=== PATIENT | male | born 1970 | race Caucasian/White ===

== ENCOUNTER 2021-11-30 01:09 | Emergency (ER) | payer OTHER ==
[~2021-11-30] VITALS: Ht 180.3 cm; Wt 159.1 kg
[2021-11-30 01:19] VITALS: BP_DIAS 151
[2021-11-30 02:24] LABS: BASOPHILS # (AUTO) 0.1 X10'3 (0-0.2); BASOPHILS % (AUTO) 0.9 % (0-1); EOSINOPHILS # (AUTO) 0.3 X10'3 (0-0.9); EOSINOPHILS % (AUTO) 2.7 % (0-6); HEMATOCRIT 39.9 % (42.0-52.0); HEMOGLOBIN 13.5 g/dl (14.0-17.9); LYMPHOCYTES # (AUTO) 2.4 X10'3 (1.1-4.8); LYMPHOCYTES % (AUTO) 23.1 % (21-51); MEAN CORPUSCULAR HEMOGLOBIN 29.2 PG (27.0-31.0); MEAN CORPUSCULAR HGB CONC 33.9 g/dL (33.0-36.5); MEAN CORPUSCULAR VOLUME 86.4 FL (78-98); MEAN PLATELET VOLUME 8.8 FL (7.4-10.4); MONOCYTES # (AUTO) 0.8 X10'3 (0-0.9); MONOCYTES % (AUTO) 7.4 % (2-12); NEUTROPHILS # (AUTO) 6.8 X10'3 (1.8-7.7); NEUTROPHILS % (AUTO) 65.9 % (42-75); PLATELET COUNT 309 X10'3 (140-440); RED BLOOD COUNT 4.62 X10'6 (4.70-6.10); RED CELL DISTRIBUTION WIDTH 14.3 % (11.5-14.5); WHITE BLOOD COUNT 10.3 X10'3 (4.5-11.0)
[2021-11-30 02:43] LABS: ANION GAP 8 (8-16); BLOOD UREA NITROGEN 16 MG/DL (7-18); BUN/CREATININE RATIO 11.4 (5.4-32.0); CALCIUM 9.1 MG/DL (8.5-10.1); CHLORIDE 101 MMOL/L (99-107); GLUCOSE 143 MG/DL (70-104); SODIUM 140 MMOL/L (135-145); TOTAL CARBON DIOXIDE 30.9 MMOL/L (24-32); eGFR 54 ML/MIN
[2021-11-30 02:51] LABS: POTASSIUM 2.7 MMOL/L (3.5-5.1)
[2021-11-30] MEDS ORDERED: potassium Cl 20 mEq SR tablet PO STA (03:11)
[2021-11-30] MEDS ORDERED: labetalol 20mg/4ml (5mg/ml) syringe IV ONE (03:25)
[2021-11-30] MEDS ORDERED: aspirin 325mg tablet PO ONE (03:30)
[2021-11-30] MEDS ORDERED: spironolactone 25 MG tablet PO STA (03:32)
[2021-11-30] MEDS ORDERED: SPIR25TA5 PO (03:34)
[2021-11-30 03:54] VITALS: BP_SYST 198
== END 2021-11-30 04:00 | disposition left against medical advice (07) ==
LOC: ER 01:10
DX: R07.89 Other chest pain (principal); R51.9 Headache, unspecified; I11.0 Hypertensive heart disease with heart failure; I50.9 Heart failure, unspecified; Z56.0 Unemployment, unspecified; Z79.899 Other long term (current) drug therapy
CPT/HCPCS: 36415; 71045; 80048; 84484; 85025; 93005; 96374; 99285; J3490

== ENCOUNTER 2024-02-18 02:50 | Emergency (ER) | payer MEDICAID ==
[~2024-02-18] VITALS: Ht 182.9 cm; Wt 159.1 kg
[~2024-02-18 02:50] MED LIST: SPIR25TA5 PO
[2024-02-18 03:00] VITALS: TEMP 98
[2024-02-18] MEDS: ondansetron/PF 4mg/2ml inj IV ONE (03:10)
[2024-02-18 03:25] LABS: BASOPHILS # (AUTO) 0.1 X10'3 (0-0.2); BASOPHILS % (AUTO) 0.9 % (0-1); EOSINOPHILS # (AUTO) 0.4 X10'3 (0-0.9); EOSINOPHILS % (AUTO) 3.9 % (0-6); HEMATOCRIT 37.9 % (42.0-52.0); HEMOGLOBIN 12.9 g/dl (14.0-17.9); LYMPHOCYTES # (AUTO) 2.1 X10'3 (1.1-4.8); MEAN CORPUSCULAR HEMOGLOBIN 29.8 PG (27.0-31.0); MEAN CORPUSCULAR HGB CONC 33.9 g/dL (33.0-36.5); MEAN CORPUSCULAR VOLUME 87.9 FL (78-98); MEAN PLATELET VOLUME 8.7 FL (7.4-10.4); MONOCYTES # (AUTO) 0.7 X10'3 (0-0.9); MONOCYTES % (AUTO) 6.4 % (2-12); NEUTROPHILS # (AUTO) 7.3 X10'3 (1.8-7.7); NEUTROPHILS % (AUTO) 68.8 % (42-75); PLATELET COUNT 258 X10'3 (140-440); RED BLOOD COUNT 4.31 X10'6 (4.70-6.10); RED CELL DISTRIBUTION WIDTH 14.7 % (11.5-14.5); WHITE BLOOD COUNT 10.6 X10'3 (4.5-11.0)
[2024-02-18 03:43] LABS: ALBUMIN 3.4 G/DL (3.4-5.0); ANION GAP 9 (8-16); BLOOD UREA NITROGEN 20 MG/DL (7-18); BUN/CREATININE RATIO 15.9 (10.0-20.0); CALCIUM 8.8 MG/DL (8.5-10.1); CHLORIDE 103 MMOL/L (99-107); CREATININE 1.26 MG/DL (0.60-1.10); GLUCOSE 261 MG/DL (70-104); LIPASE 35 U/L (16-77); SODIUM 140 MMOL/L (135-145); TOTAL CARBON DIOXIDE 27.9 MMOL/L (24-32); eCRCL 75 ML/MIN; eGFR 60 ML/MIN
[2024-02-18 03:45] LABS: POTASSIUM 3.7 MMOL/L (3.5-5.1)
[2024-02-18] MEDS: normal saline 1000ML IV soln IVB ONE (03:49)
[2024-02-18 04:59] LABS: BILIRUBIN,URINE NEGATIVE (Neg); CLARITY,URINE CLEAR (Clear); COLOR,URINE YELLOW (Yellow); GLUCOSE, URINE 250 mg/dl (Neg); KETONES,URINE NEGATIVE (Neg); LEUKOCYTE ESTERASE ,URINE NEGATIVE (Neg); NITRITES, URINE NEGATIVE (Neg); OCCULT BLOOD,URINE NEGATIVE (Neg); PROTEIN,URINE 100 mg/dl (Neg); UROBILINOGEN,URINE 0.2 E.U/dL (0.2-1.0)
[2024-02-18 05:03] LABS: UA COLLECTION TYPE CLN CATCH MIDSTREAM
[2024-02-18 05:05] LABS: RBC,URINE 0-2 /HPF (0-2); WBC,URINE 0-4 /HPF (0-4)
[2024-02-18 05:06] LABS: BACTERIA,URINE FEW /HPF (Neg); COARSE GRANULAR CAST 0-3 /LPF (NEGATIVE); FINE GRANULAR CAST 0-3 /LPF (NEGATIVE); SQUAMOUS EPITHELIAL CELL,UR FEW /LPF (FEW); TRANSITIONAL EPI CELLS,URINE FEW /HPF
[2024-02-18] MEDS: morphine 4 MG/ML inj SYRINge IV PRN (05:24)
[2024-02-18] MEDS: hydrALAZINE 20mg/ml inj. IV ONE (05:54)
[2024-02-18 06:19] VITALS: BP 198/109; PULSE 99; RESP 14; O2SAT 97
== END 2024-02-18 06:28 ==
LOC: ER 02:51
DX: I50.9 Heart failure, unspecified (principal); I11.0 Hypertensive heart disease with heart failure; Z79.899 Other long term (current) drug therapy
CPT/HCPCS: 36415; 74176; 80048; 81001; 83690; 84484; 85025; 96374; 99285; J0360; J7030

== ENCOUNTER 2024-11-22 04:20 | Emergency (ER) | payer MEDICAID ==
[~2024-11-22] VITALS: Ht 180.3 cm; Wt 158.7 kg
[~2024-11-22 04:20] MED LIST changes: +ASPI-1071 PO; +LISI10TA27 PO; +METF-1157 PO; +METO50TA16 PO; +MINO2.5T19 PO; +NITR0.4T51 SL; -SPIR25TA5 PO
[2024-11-22 04:29] VITALS: TEMP 98.9
[2024-11-22 05:11] LABS: BASOPHILS % (AUTO) 0.5 % (0-1); EOSINOPHILS # (AUTO) 0.6 X10'3 (0-0.9); EOSINOPHILS % (AUTO) 7.2 % (0-6); HEMATOCRIT 36.6 % (42.0-52.0); HEMOGLOBIN 12.1 g/dl (14.0-17.9); LYMPHOCYTES # (AUTO) 1.9 X10'3 (1.1-4.8); LYMPHOCYTES % (AUTO) 24.4 % (21-51); MEAN CORPUSCULAR HEMOGLOBIN 28.9 PG (27.0-31.0); MEAN CORPUSCULAR HGB CONC 33.1 g/dL (33.0-36.5); MEAN CORPUSCULAR VOLUME 87.3 FL (78-98); MONOCYTES # (AUTO) 0.6 X10'3 (0-0.9); MONOCYTES % (AUTO) 7.7 % (2-12); NEUTROPHILS # (AUTO) 4.8 X10'3 (1.8-7.7); NEUTROPHILS % (AUTO) 60.2 % (42-75); PLATELET COUNT 191 X10'3 (140-440); RED BLOOD COUNT 4.19 X10'6 (4.70-6.10); RED CELL DISTRIBUTION WIDTH 16.3 % (11.5-14.5)
[2024-11-22 05:21] LABS: ALANINE AMINOTRANSFERASE 33 U/L (12-78); ALBUMIN 3.3 G/DL (3.4-5.0); ALKALINE PHOSPHATASE 91 IU/L (46-116); ANION GAP 9 (8-16); ASPARTATE AMINO TRANSFERASE 30 U/L (10-37); BILIRUBIN,TOTAL 0.8 MG/DL (0.1-1.0); BLOOD UREA NITROGEN 23 MG/DL (7-18); BUN/CREATININE RATIO 19.5 (10.0-20.0); CALCIUM 8.3 MG/DL (8.5-10.1); CHLORIDE 104 MMOL/L (99-107); CREATININE 1.18 MG/DL (0.60-1.10); GLUCOSE 251 MG/DL (70-104); POTASSIUM 3.5 MMOL/L (3.5-5.1); SODIUM 139 MMOL/L (135-145); TOTAL CARBON DIOXIDE 25.8 MMOL/L (24-32); TOTAL PROTEIN 6.6 G/DL (6.4-8.2); eCRCL 77 ML/MIN; eGFR 65 ML/MIN
[2024-11-22 05:28] LABS: PRO BRAIN NATRIURETIC PEPTIDE 576 PG/ML (0-125)
[2024-11-22] MEDS: furosemide 40mg/4ml inj IV ONE (09:02)
[2024-11-22] MEDS: ondansetron/PF 4mg/2ml inj IV ONE (09:03)
[2024-11-22 09:09] VITALS: BP 155/95; PULSE 93; RESP 24; O2SAT 96
[2024-11-22 10:49] LABS: BILIRUBIN,URINE NEGATIVE (Neg); CLARITY,URINE CLEAR (Clear); COLOR,URINE YELLOW (Yellow); GLUCOSE, URINE 100 mg/dl (Neg); KETONES,URINE NEGATIVE (Neg); LEUKOCYTE ESTERASE ,URINE NEGATIVE (Neg); NITRITES, URINE NEGATIVE (Neg); OCCULT BLOOD,URINE NEGATIVE (Neg); PH,URINE 5.5 (4.8-8.0); PROTEIN,URINE TRACE mg/dl (Neg); UROBILINOGEN,URINE 0.2 E.U/dL (0.2-1.0)
[2024-11-22 10:56] LABS: UA COLLECTION TYPE NON-SPECIFIED
[2024-11-22 10:59] LABS: BACTERIA,URINE NONE SEEN /HPF (Neg); MUCUS STRANDS NONE SEEN /LPF (Neg); RBC,URINE NONE SEEN /HPF (0-2); SQUAMOUS EPITHELIAL CELL,UR FEW /LPF (FEW); WBC,URINE 0-4 /HPF (0-4)
[2024-11-22] MEDS ORDERED: FURO-149 PO (11:00)
[2024-11-22] MEDS ORDERED: POTA10CA95 PO (11:00)
== END 2024-11-22 11:42 | disposition home or self-care (01) ==
LOC: ER 04:20
DX: I11.0 Hypertensive heart disease with heart failure (principal); I50.9 Heart failure, unspecified; E11.9 Type 2 diabetes mellitus without complications; Z79.82 Long term (current) use of aspirin; Z79.84 Long term (current) use of oral hypoglycemic drugs; Z79.899 Other long term (current) drug therapy; Z56.0 Unemployment, unspecified
CPT/HCPCS: 36415; 71045; 80053; 81001; 83880; 84484; 85025; 93005; 96374; 96375; 99285; J1940; J2405

== ENCOUNTER 2025-01-08 13:38 | Outpatient (CLI) | payer MEDICAID ==
[~2025-01-08] VITALS: Ht 177.8 cm; Wt 156.5 kg
[~2025-01-08 13:38] MED LIST changes: +FURO-149 PO; -METF-1157 PO
[2025-01-08 14:27] VITALS: PULSE 90; RESP 16; O2SAT 95
[2025-01-08] MEDS: albuterol 2.5 MG/3 ML nebule NEB ONE (14:36)
[2025-01-08 14:38] VITALS: PULSE 83; RESP 16
== END 2025-01-08 23:59 | disposition home or self-care (01) ==
LOC: RT 13:38
PROVIDERS: ATTEND Family Medicine
DX: I27.20 Pulmonary hypertension, unspecified (principal); R06.02 Shortness of breath; I10 Essential (primary) hypertension
CPT/HCPCS: 94060; 94760

== ENCOUNTER 2025-02-17 14:21 | Inpatient (IN) | payer MEDICAID ==
[~2025-02-17] VITALS: Ht 177.8 cm; Wt 154.2 kg
--- NOTE | 2025-02-17 14:35 | ELECTROCARDIOGRAPH REPORT ---
[facility] Test Date: 2025-02-17 Test Time: 14:26:10 Pat Name: ALICE DAVIDSON Department: EMERGENCY ROOM Room: Gender: M Emergency Room Nurse: : 1970 Requested By: STEPHEN CHRISTIANSON Order Number: [id number] Reading MD: Dr. Xiang Hollins Measurements Intervals [place] Rate: 91 P: 52 KS: 164 QRS: 33 QRSD: 98 T: 57 QT: 377 QTc: 464 Interpretive Statements Sinus rhythm Low voltage, precordial leads RSR' in V1 or V2, right VCD or RVH Electronically Signed On 02-17-2025 18:18:[address] Xiang Hollins Please click the below link to view image of tracing.
[2025-02-17 14:54] LABS: BASOPHILS # (AUTO) 0.1 X10'3 (0-0.2); BASOPHILS % (AUTO) 0.7 % (0-1); EOSINOPHILS # (AUTO) 0.4 X10'3 (0-0.9); EOSINOPHILS % (AUTO) 3.9 % (0-6); HEMOGLOBIN 13.8 g/dl (14.0-17.9); LYMPHOCYTES % (AUTO) 20.4 % (21-51); MEAN CORPUSCULAR HEMOGLOBIN 31.5 PG (27.0-31.0); MEAN CORPUSCULAR HGB CONC 35.3 g/dL (33.0-36.5); MEAN PLATELET VOLUME 9.1 FL (7.4-10.4); MONOCYTES # (AUTO) 0.6 X10'3 (0-0.9); NEUTROPHILS # (AUTO) 6.9 X10'3 (1.8-7.7); PLATELET COUNT 260 X10'3 (140-440); RED BLOOD COUNT 4.38 X10'6 (4.70-6.10); RED CELL DISTRIBUTION WIDTH 16.5 % (11.5-14.5)
[2025-02-17 14:59] LABS: ALANINE AMINOTRANSFERASE 44 U/L (12-78); ALBUMIN 3.7 G/DL (3.4-5.0); ALBUMIN/GLOBULIN RATIO 1.2 (1.1-1.5); ALKALINE PHOSPHATASE 114 IU/L (46-116); ANION GAP 7 (8-16); ASPARTATE AMINO TRANSFERASE 29 U/L (10-37); BILIRUBIN,TOTAL 0.9 MG/DL (0.1-1.0); BLOOD UREA NITROGEN 19 MG/DL (7-18); BUN/CREATININE RATIO 13.8 (10.0-20.0); CALCIUM 8.9 MG/DL (8.5-10.1); CHLORIDE 104 MMOL/L (99-107); CREATININE 1.38 MG/DL (0.60-1.10); GLUCOSE 191 MG/DL (70-104); POTASSIUM 3.7 MMOL/L (3.5-5.1); SODIUM 138 MMOL/L (135-145); TOTAL CARBON DIOXIDE 26.8 MMOL/L (24-32); TOTAL PROTEIN 6.8 G/DL (6.4-8.2); eCRCL 48 ML/MIN; eGFR 54 ML/MIN
[2025-02-17 15:06] LABS: PRO BRAIN NATRIURETIC PEPTIDE 271 PG/ML (0-125)
--- NOTE | 2025-02-17 15:58 | Physician Documentation ---
History of Present Illness ~ Chief Complaint: Hypertension Stated Complaint: HIGH BLOOD PRESSURE Time Seen by MD: 16:02 Primary Medical Doctor: N/A HPI 54-year-old male with history of hypertension presents to the emergency department with sternal chest tightness, blurred vision, generalized malaise, and headache along with high blood pressure readings at home after running out of his normally prescribed lisinopril in the past two weeks. Patient reports that he is on multiple blood pressure medications but they stopped his lisinopril for some reason couple of weeks ago. Since that time his blood pressures have been elevated. He states he has a history of heart failure as well. No other complaints. He reports that he took some nitro as at that he had at home which helped relieve his chest tightness. Medication Reconciliation Allergies: Coded Allergies: No Known Allergies (Unverified , 11/22/24) Scheduled Aspirin (Children's Aspirin), 1 TAB PO DAILY, (Reported) Furosemide (Furosemide), 1 TAB PO BID, (Reported) Lisinopril* (Lisinopril*), 1 TAB PO DAILY, (Reported) Metformin HCl (Metformin HCl ER), 1 TAB PO BID, (Reported) Metoprolol Succinate (Metoprolol Succinate), 1 TAB PO DAILY, (Reported) Omeprazole (Prilosec), 1 CAP PO DAILY, (Reported) Potassium Chloride 8 MEQ* (Slow-K 8 Meq*), 1 CAP PO DAILY, (Reported) Potassium Chloride* (Potassium Chloride*), 1 CAP PO DAILY, (Reported) Spironolactone (Spironolactone), 1 TAB PO DAILY, (Reported) Tirzepatide (Zepbound), 7.5 MG SQ Q7D, (Reported) Tirzepatide (Zepbound), 2.5 MG SQ Q7D, (Reported) Miscellaneous Medications Budesonide/Formoterol Fumarate (Symbicort 160-4.5 Mcg Inhaler), 2 PUFFS PO, (Reported) Nitroglycerin (Nitroglycerin), 1 TAB SL, (Reported) Discontinued Medications Aspirin (Ecotrin*), 1 TAB PO DAILY Discontinued Reason: Other Furosemide (Lasix), 40 MG PO DAILY Discontinued Reason: Other Lisinopril (Lisinopril), 40 MG PO DAILY Discontinued Reason: Other Metoprolol Tartrate (Metoprolol Tartrate), 50 MG PO Q6H Discontinued Reason: Other Minoxidil* (Loniten*), 5 MG PO BID Discontinued Reason: Other Nitroglycerin SL* (Nitrostat SL*), 0.4 MG SL Q5MIN PRN for chest pain Discontinued Reason: Other Past Medical History Past Medical History: Congestive Heart Failure, Hypertension Past Surgical History: no surgical history Lives In: Home Occupation: unemployed Physical Exam Vital Signs: Temperature: 97.3, Source: Temporal, Heart Rate: 92, Respiratory Rate: 18, BP: 203/113, Pulse Oximetry: 97, Weight: 157.350 Physical Exam I have reviewed the triage vitals. CONST: Well developed and well nourished. In no acute distress HENT: Head Atraumatic EYES: Pupils are equal, round and reactive to light. Normal conjunctiva NECK: Normal range of motion. Supple. CARDIO: Normal rate and regular rhythm. No murmurs, rubs, or gallops. S1, S2. PULM/CHEST: No respiratory distress. Lungs clear to auscultation. No wheeze ABD: Soft and nontender. Nondistended. Bowel sounds normal. No guarding. Obese : Exam deferred MSK: No edema. No deformity. NEURO: Alert and oriented to person, place and time. Moving all extremities SKIN: Warm and dry. PSYCH: Normal mood and affect. Good eye contact. Progress Progress Note 1856: Hospitalist paged. Results/Orders Reviewed/noted all lab results: Yes Results/Orders Orders - JENNY GUTIERREZ MD Ct Head (02/17/25 16:25) Chest,Single View (02/17/25 16:25) Page Hospitalist (02/17/25 17:49) Fill Out Med Reconciliation (02/17/25 17:49) Completed Orders - JENNY GUTIERREZ MD Clonidine Tablet (Catapres Tablet) (02/17/25 16:25) Ct Head (02/17/25 16:25) Chest,Single View (02/17/25 16:25) Clonidine Tablet (Catapres Tablet) (02/17/25 17:10) Hydralazine Inj. (Apresoline Inj.) (02/17/25 18:00) Vital Signs 02/17/25 02/17/25 02/17/2530/25 14:31 16:08 17:18 17:51 Temp 97.3 97.3 Pulse 92 90 90 83 Resp 18 16 12 16 B/P (MAP) 203/113 203/108 (139) 206/118 (147) 184/115 (138) Pulse Ox 97 98 98 95 O2 Flow Rate 0 0 02/17/25 02/17/25 02/17/25 18:23 18:49 19:17 Pulse 86 82 90 Resp 16 B/P (MAP) 183/103 (129) Pulse Ox 96 O2 Flow Rate 0 Laboratory Tests Test 02/17/25 14:31 02/17/25 16:27 02/17/25 17:37 White Blood Count 10.0 Red Blood Count 4.38 L Hemoglobin 13.8 L Hematocrit 39.0 L Mean Corpuscular Volume 89.0 Mean Corpuscular Hemoglobin 31.5 H Mean Corpuscular Hemoglobin Concent 35.3 Red Cell Distribution Width 16.5 H Platelet Count 260 Mean Platelet Volume 9.1 Neutrophils (%) (Auto) 69.0 Lymphocytes (%) (Auto) 20.4 L Monocytes (%) (Auto) 6.0 Eosinophils (%) (Auto) 3.9 Basophils (%) (Auto) 0.7 Neutrophils # (Auto) 6.9 Lymphocytes # (Auto) 2.0 Monocytes # (Auto) 0.6 Eosinophils # (Auto) 0.4 Basophils # (Auto) 0.1 CBC Comment Sodium Level 138 Potassium Level 3.7 Chloride Level 104 Carbon Dioxide Level 26.8 Anion Gap 7 L Blood Urea Nitrogen 19 H Creatinine 1.38 H Estimated GFR/1.73 m2 54 BUN/Creatinine Ratio 13.8 Glucose Level 191 H Hemoglobin A1c 6.4 H Calcium Level 8.9 Total Bilirubin 0.9 Aspartate Amino Transf (AST/SGOT) 29 Alanine Aminotransferase (ALT/SGPT) 44 Alkaline Phosphatase 114 Troponin I High Sensitivity 30 27 32 Pro-B-Type Natriuretic Peptide 271 H Total Protein 6.8 Albumin 3.7 Globulin 3.1 Albumin/Globulin Ratio 1.2 Chemistry Comments Troponin I High Sens Percent Delta 10 18 Troponin I Hi Sens Absolute Change -3 5 EKG/XRAY/CT/US/VASC/MRI EKG : Additional Comment EKG interpreted by SYD Gutierrez shows normal sinus rhythm at a rate of 81, normal axis, no AK intervals. Normal ischemia Chest X-Ray : Additional Comments CHEST RADIOGRAPH Indication: SOB Technique: Single frontal view of the chest was obtained Comparison: DI CHEST,SINGLE VIEW on DOS: 11/22/24, DI CHEST,SINGLE VIEW on DOS: 10/21/24, CHEST,SINGLE VIEW on DOS: 11/30/21 FINDINGS: Lines and Tubes: None Lungs: No focal consolidation. Mild pulmonary vascular congestion Pleura: No effusion. No pneumothorax. Cardiomediastinal contours: Moderate cardiomegaly. Bones: No acute osseous abnormality. IMPRESSION: Moderate cardiomegaly with mild pulmonary vascular congestion. : Impression EXAM: CT CT HEAD; DATE: 02/17/2025 04:31 PM HISTORY: dizziness/blurry vision COMPARISON: None TECHNIQUE: Axial images were obtained and reformatted in coronal and sagittal planes. All CT scans at this medical facility are performed using dose modulation techniques as appropriate to a performed exam including the following: Automated exposure control was utilized; adjustment of the MA and/or KV according to patient size; and use of iterative reconstruction technique. CT Dose: CTDI volume is 55 mGy. Dose-length product is 916 mGy*cm FINDINGS: Supratentorial Region: No evidence for large acute territorial ischemia. No intracranial hemorrhage is noted. Confluent white matter hypoattenuating foci are noted bilaterally, which typically reflect chronic microvascular ischemic changes. Posterior Fossa: No acute abnormality. Brainstem: Unremarkable. Sellar/Suprasellar Region: Unremarkable. Ventricles, Cisterns, Sulci: Age-appropriate. Orbits: Unremarkable. Paranasal Sinuses: Unremarkable. Mastoid Air Cells: Unremarkable. Vasculature: Unremarkable. Bones/Soft Tissues: No acute abnormality. Other: None. IMPRESSION: 1. No acute intracranial process. Heart Score: Heart Score Response (Comments) Value History Highly Suspicious 2 EKG Normal 0 Age 45-64 1 Risk Factors >3 or Hx ASHD 2 Troponin Normal limit 0 Total 5 Medical Decision Making Additional Information 54-year-old male presenting with hypertensive emergency. He does have severely elevated blood pressure with systolic well over 180 and diastolic swell over 110. Patient has a slight elevation of his BUN and creatinine indicating possible renal damage. Head CT was unremarkable. Additionally he does have some cardiomegaly and mild pulmonary congestion as well and he has been endorsing some chest tightness. He did have an elevation of his BNP. Patient was medicated with two doses of 0.1 mg clonidine with only minimal improvement of his blood pressure. His EKG did not show any signs of acute ischemia. Troponins were not elevated and remainder of his blood work was unremarkable. Given these findings it is prudent to have the patient admitted for treatment of his hypertensive emergency and further treatment and care. Report called to admitting hospitalist team. Departure Time of Disposition: 18:56 Disposition: ADMITTED INPATIENT Admitted to Inpatient Unit: yes, to hospitalist Admission Level of Care: Med/Surg with Tele Impression: Primary Impression: Hypertensive emergency Additional Impression: CHF (congestive heart failure) Qualified Codes: I50.9 - Heart failure, unspecified Condition: Guarded Referrals: NO PRIMARY CARE PROVIDER (PCP) Signature Scribe Signature: Scribed for Xiang Hollins MD by Mame Knight . 02/17/25 19:25 Attestation: Scribed for Xiang Hollins MD by Jenny Lester MD . 02/18/25 06:35 The note accurately reflects work and decisions made by me.Jenny Lester MD 02/18/25 06:35 EARLINE MCCRAY Feb 17, 2025 15:58 JENNY GUTIERREZ MD Feb 17, 2025 16:36 MAME CHERRY Feb 17, 2025 19:26
[2025-02-17] MEDS: cloNIDine 0.1 mg tablet PO ONE ×2 (16:41→17:17)
--- NOTE | 2025-02-17 17:05 | RADIOLOGY REPORT ---
EXAM: CT CT HEAD; DATE: 02/17/2025 04:31 PM HISTORY: dizziness/blurry vision COMPARISON: None TECHNIQUE: Axial images were obtained and reformatted in coronal and sagittal planes. All CT scans at this medical facility are performed using dose modulation techniques as appropriate to a performed e xam including the following: Automated exposure control was utilized; adjustment of the MA and/or KV according to patient size; and use of iterative reconstruction technique. CT Dose: CTDI volume is 55 mGy. Dose-length product is 916 mGy*cm FINDINGS: Supratentorial Region: No evidence for large acute territorial ischemia. No intracranial hemorrhage is noted. Confluent white matter hypoattenuating foci are noted bilaterally, which typically reflect chronic microvascular ischemic changes. Posterior Fossa: No acute abnormality. Brainstem: Unremarkable. Sellar/Suprasellar Region: Unremarkable. Ventricles, Cisterns, Sulci: Age-appropriate. Orbits: Unremarkable. Paranasal Sinuses: Unremarkable. Mastoid Air Cells: Unremarkable. Vasculature: Unremarkable. Bones/Soft Tissues: No acute abnormality. Other: None. IMPRESSION: 1. No acute intracranial process.
--- NOTE | 2025-02-17 17:12 | RADIOLOGY REPORT ---
CHEST RADIOGRAPH Indication: SOB Technique: Single frontal view of the chest was obtained Comparison: DI CHEST,SINGLE VIEW on DOS: 11/22/24, DI CHEST,SINGLE VIEW on DOS: 10/21/24, CHEST,SINGLE EW on DOS: 11/30/21 FINDINGS: Lines and Tubes: None Lungs: No focal consolidation. Mild pulmonary vascular congestion Pleura: No effusion. No pneumothorax. Cardiomediastinal contours: Moderate cardiomegaly. Bones: No acute osseous abnormality. IMPRESSION: Moderate cardiomegaly with mild pulmonary vascular congestion.
[2025-02-17] MEDS ORDERED: POTA10CA95 PO (18:07)
[2025-02-17] MEDS ORDERED: BUDE10.2 PO (18:07)
[2025-02-17] MEDS ORDERED: OMEP40CA21 PO (18:07)
[2025-02-17] MEDS ORDERED: TIRZ7.5P3 SQ (18:07)
[2025-02-17] MEDS ORDERED: POTA8CAP20 PO (18:07)
[2025-02-17] MEDS ORDERED: METF-517 PO (18:07)
[2025-02-17] MEDS ORDERED: SPIR25TA5 PO (18:07)
[2025-02-17] MEDS: hydrALAZINE 20mg/ml inj. IV ONE (18:23)
[2025-02-17] MEDS: lisinopril 10 MG tablet PO ONE (19:17)
[2025-02-17] MEDS ORDERED: acetaminophen 325mg tablet PO PRN (19:40)
[2025-02-17] MEDS ORDERED: magnesium sulf-water 2g/50mL 50 ML IV PRN (19:40)
[2025-02-17] MEDS ORDERED: ondansetron/PF 4mg/2ml inj IV PRN (19:40)
[2025-02-17] MEDS ORDERED: magnesium hydroxide 30ml (MOM) UD suspension PO PRN (19:40)
[2025-02-17] MEDS ORDERED: mag hydrox/Alum hydrox/simeth 30ml oral suspension PO PRN (19:40)
[2025-02-17] MEDS ORDERED: magnesium sulf-water 4G/100mL 100 ML IV PRN (19:40)
[2025-02-17] MEDS ORDERED: magnesium Cl slow-release 64mg tablet PO PRN (19:40)
[2025-02-17] MEDS ORDERED: potassium Cl 40MEQ/1/2NS 520ml 520 ML IV PRN (19:40)
[2025-02-17] MEDS ORDERED: morphine 2 MG/ML inj. syringe IV PRN ×2 (19:40)
[2025-02-17] MEDS ORDERED: potassium Cl 20 mEq SR tablet PO PRN ×2 (19:40)
[2025-02-17] MEDS: K and/or MAG REPLACEMENT MC SCH (20:00)
[2025-02-17] MEDS: docusate sod 100mg capsule PO SCH (20:00)
[2025-02-17] MEDS ORDERED: FURO40TA4 PO (20:47)
[2025-02-17] MEDS ORDERED: ASPI-1144 PO (20:47)
[2025-02-17] MEDS ORDERED: LISI40TA13 PO (20:47)
[2025-02-17] MEDS ORDERED: METO-384 PO (20:47)
[2025-02-17] MEDS ORDERED: TIRZ2.5P3 SQ (20:47)
[2025-02-17] MEDS ORDERED: NITR0.4T48 SL (20:49)
[2025-02-17] MEDS: heparin, porcine 5000 units/ml vial SQ SCH (20:54)
[2025-02-17] MEDS ORDERED: dextrose 50%-water 50ml dispensing syringe IV PRN ×2 (21:05)
[2025-02-17] MEDS ORDERED: DEXTROSE 15 GM of carb/4 tabs (each vial/BOTTLE has 4 tablets) PO PRN ×2 (21:05)
[2025-02-17] MEDS ORDERED: glucagon, human recombinant 1mg kit SUBCUT PRN (21:05)
[2025-02-17] MEDS: furosemide 40mg/4ml inj IV SCH (21:24)
[2025-02-17 21:44] LABS: HEMOGLOBIN A1C 6.4 % (4.5-6.2)
[2025-02-17 22:00] VITALS: BP 134/64; PULSE 86; RESP 24; TEMP 97.8; O2SAT 97
[2025-02-17 23:00] VITALS: RESP 24; O2SAT 97
[2025-02-18] VITALS (12 sets, daily range): BP systolic 96–150; BP diastolic 46–94; PULSE 60–96; RESP 10–24; TEMP 97.2–97.8; O2SAT 76–99
--- NOTE | 2025-02-18 00:43 | HISTORY AND PHYSICAL-Residence ---
History & Physical Providers to CC Resident Creating Document: KEVIN GARNETT CC: SAVAGE WING MD ~ History of Present Illness Primary Medical Doctor: N/A Reason for Admit\Complaint: Headache History of Present Illness Patient is 54-year-old male with history of hypertension, stable angina, COPD, CHF, type 2 diabetes and ROLLY who came to the ED due to headaches and concerns of high blood pressure. Patient reports that earlier today he presented with increasing headache, blurry vision, with halos in the left eye, as well as left- sided chest pain 3/10 in intensity, nonradiating along with some nausea. He also reports that he has been experiencing worsening orthopnea and PND, as well as increasing fatigue and shortness of breath on exertion. Of note, patient reports not taking his lisinopril for the past 2 weeks. Allergies: Coded Allergies: No Known Allergies (Unverified , 11/22/24) Home Medications Home Medications Active Reported Nitroglycerin 0.4 Mg Tab.subl 1 Tab SL Children's Aspirin (Aspirin) 81 Mg Tab.chew 1 Tab PO DAILY Metoprolol Succinate 50 Mg Tab.sr.24h 1 Tab PO DAILY Furosemide 40 Mg Tablet 1 Tab PO BID Lisinopril* (Lisinopril) 40 Mg Tablet 1 Tab PO DAILY Zepbound (Tirzepatide) 2.5 Mg/0.5 Ml Pen.injctr 2.5 Mg SQ Q7D Potassium Chloride* (Potassium Chloride) 10 Meq Capsule.sa 1 Cap PO DAILY Metformin HCl ER (Metformin HCl) 1,000 Mg Tab.er.24 1 Tab PO BID Prilosec (Omeprazole) 40 Mg Capsule 1 Cap PO DAILY Spironolactone 25 Mg Tablet 1 Tab PO DAILY Slow-K 8 Meq* (Potassium Chloride) 8 Meq Capsule.sa 1 Cap PO DAILY Zepbound (Tirzepatide) 7.5 Mg/0.5 Ml Pen.injctr 7.5 Mg SQ Q7D Symbicort 160-4.5 Mcg Inhaler (Budesonide/Formoterol Fumarate) 160 Mcg-4.5 Mcg/Actuation Hfa.aer.ad 2 Puffs PO Past Medical History Past Medical History Hypertension, stable angina, COPD, CHF, type 2 diabetes and ROLLY Past Surgical History Surgical History Comment Unspecified arm surgery Family History Family History: FH: coronary artery bypass surgery FH: emphysema FH: lung cancer Past Social History Smoking: Secondhand Alcohol Use: Occasionally Drug Use: None Lives with: Alone Lives In: Home Occupation: unemployed ROS ROS All systems were reviewed and found negative except for pertinent positives mentioned in HPI Exam Vitals: Vital Signs Date Time Temp Pulse Resp B/P (MAP) Pulse Ox O2 Delivery O2 Flow Rate FiO2 02/17/25 23:00 24 97 Room Air 02/17/25 22:19 85 02/17/25 22:00 97.8 134/64 (87) 02/17/25 18:49 0 General: General: awake, alert oriented to place, time, and person HEENT: No pallor present, no icterus, moist mucous membranes Neck: No masses and tenderness Resp: Unlabored. Bilateral basal lung crackles Heart: Regular Rate and rhythm, normal S1 and S2 without murmur, rub or gallop Abdomen: Soft and non tender no organomegaly, no guarding and rigidity, bowel sounds present Neuro: No weakness in the upper and lower limb muscles, power of the muscles 5/5 bilateral upper and lower muscles, knee reflex present bilaterally. Cranial nerves intact Extremities: 1+ pedal edema. No cyanosis or clubbing Skin: Warm and Dry. No lesions Diagnostic Data Last Recorded Lab Results: 02/17/25 1431 02/17/25 1431 Advance Care Planning Advanced Care plannin - 30 Minutes Additional Plan Patient is 54-year-old male with history of hypertension, stable angina, COPD, CHF, type 2 diabetes and ROLLY who came to the ED due to headaches and concerns of high blood pressure. Admitted for evaluation and management of hypertensive emergency and CHF exacerbation. Hypertensive emergency Acute on chronic heart failure with preserved ejection fraction History of stable angina Initial blood pressure 203/115, along with headaches, blurry vision and chest pain Patient received p.o. lisinopril, IV hydralazine, and p.o. clonidine in ED Head CT is unremarkable EKG was unremarkable Troponins are normal ProBNP is 271 Echocardiogram from 10/2024 showed LV is moderately dilated with moderate concentric hypertrophy. Overall systolic function appears normal. LVEF is 55%. RV appears mildly dilated with normal contractility. Thickened RV free wall. RVSP is estimated at 59 mmHG. Chest x-ray shows cardiomegaly with pulmonary congestion Will restart home lisinopril Will start IV Lasix 40 mg b.i.d. daily Continue aspirin, metoprolol, spironolactone Continue nitroglycerin p.r.n. chest pain COPD, not in exacerbation Obstructive sleep apnea Type 2 diabetes A1c is 6.4 DuoNebs q.4 PRN CPAP at night Hold metformin Starts Lantus 10 units, lispro 2 units, low-dose supplemental. Adjust as necessary Code Status: Full code DVT prophylaxis: Heparin Nutrition: Heart healthy diet PT: Ordered Prognosis: Guarded Disposition: Admit to PCU with tele monitoring. Continue medical management Kevin Coronado MD Internal Medicine Resident PGY-1 Date of Service: February 18, 2025 Billing Provider: SAVAGE WING MD Common Visit Codes: [id number] INP/OBS CARE (HIGH) Assessment/Plan Assessment Evaluated the patient with the help of residents. Discussed the case with him. Reviewed notes by the resident. Agree with her assessments and plans. I also reviewed the patient's records. And reviewed notes from other providers, laboratory data, radiological investigations, and charts. KEVIN GARNETT February 18, 2025 00:43 SAVAGE WING MD February 18, 2025 05:19
[2025-02-18] MEDS ORDERED: nitroGLYCERIN 0.4mg SUBLingual tab SL PRN (01:05)
[2025-02-18] MEDS ORDERED: ipratropium/albuterol 3ml nebule NEB PRN (01:10)
[2025-02-18 06:39] LABS: BASOPHILS # (AUTO) 0.1 X10'3 (0-0.2); BASOPHILS % (AUTO) 0.8 % (0-1); EOSINOPHILS # (AUTO) 0.4 X10'3 (0-0.9); EOSINOPHILS % (AUTO) 4.6 % (0-6); HEMATOCRIT 38.2 % (42.0-52.0); HEMOGLOBIN 13.3 g/dl (14.0-17.9); LYMPHOCYTES # (AUTO) 2.4 X10'3 (1.1-4.8); LYMPHOCYTES % (AUTO) 25.6 % (21-51); MEAN CORPUSCULAR HEMOGLOBIN 30.6 PG (27.0-31.0); MEAN CORPUSCULAR HGB CONC 34.7 g/dL (33.0-36.5); MEAN CORPUSCULAR VOLUME 88.2 FL (78-98); MONOCYTES # (AUTO) 0.7 X10'3 (0-0.9); MONOCYTES % (AUTO) 6.9 % (2-12); NEUTROPHILS # (AUTO) 5.9 X10'3 (1.8-7.7); NEUTROPHILS % (AUTO) 62.1 % (42-75); PLATELET COUNT 260 X10'3 (140-440); RED BLOOD COUNT 4.33 X10'6 (4.70-6.10); RED CELL DISTRIBUTION WIDTH 16.2 % (11.5-14.5); WHITE BLOOD COUNT 9.5 X10'3 (4.5-11.0)
[2025-02-18 06:54] LABS: ALANINE AMINOTRANSFERASE 35 U/L (12-78); ALBUMIN 3.3 G/DL (3.4-5.0); ALBUMIN/GLOBULIN RATIO 1.1 (1.1-1.5); ALKALINE PHOSPHATASE 73 IU/L (46-116); ANION GAP 9 (8-16); ASPARTATE AMINO TRANSFERASE 24 U/L (10-37); BLOOD UREA NITROGEN 19 MG/DL (7-18); BUN/CREATININE RATIO 13.8 (10.0-20.0); CALCIUM 8.6 MG/DL (8.5-10.1); CHLORIDE 106 MMOL/L (99-107); CREATININE 1.38 MG/DL (0.60-1.10); GLUCOSE 114 MG/DL (70-104); POTASSIUM 3.9 MMOL/L (3.5-5.1); SODIUM 141 MMOL/L (135-145); TOTAL CARBON DIOXIDE 26.3 MMOL/L (24-32); TOTAL PROTEIN 6.3 G/DL (6.4-8.2); eCRCL 48 ML/MIN; eGFR 54 ML/MIN
[2025-02-18] MEDS: INSULIN LISPRO 100 UNIT/ML INSULN.PEN MULTI-DOSE SQ SCH ×2 (07:00→09:22)
[2025-02-18] MEDS: pantoprazole 40mg Tablet.DR PO SCH (07:59)
[2025-02-18] MEDS: aspirin 81mg tab.chew PO SCH (09:15)
[2025-02-18] MEDS: metoprolol succinate 25mg (24-HOUR) SR. Tablet PO SCH (09:24)
[2025-02-18] MEDS: lisinopril 20mg tablet PO SCH (09:24)
[2025-02-18] MEDS: spironolactone 25 MG tablet PO SCH (09:25)
[2025-02-18 15:13] LABS: BILIRUBIN,URINE NEGATIVE (Neg); CLARITY,URINE CLEAR (Clear); COLOR,URINE YELLOW (Yellow); GLUCOSE, URINE NEGATIVE (Neg); KETONES,URINE NEGATIVE (Neg); LEUKOCYTE ESTERASE ,URINE NEGATIVE (Neg); NITRITES, URINE NEGATIVE (Neg); OCCULT BLOOD,URINE NEGATIVE (Neg); PH,URINE 5.5 (4.8-8.0); PROTEIN,URINE NEGATIVE (Neg); UROBILINOGEN,URINE 0.2 E.U/dL (0.2-1.0)
[2025-02-18 15:22] LABS: UA COLLECTION TYPE CLN CATCH MIDSTREAM
[2025-02-18 15:27] LABS: URINE AMPHETAMINE SCREEN NEGATIVE (Neg); URINE BARBITUATE SCREEN NEGATIVE (Neg); URINE BENZODIAZEPINES SCREEN NEGATIVE (Neg); URINE CANNABINOID SCREEN NEGATIVE (Neg); URINE COCAINE SCREEN NEGATIVE (Neg); URINE METHADONE SCREEN NEGATIVE (Neg); URINE OPIATE SCREEN NEGATIVE (Neg); URINE PHENCYCLIDINE SCREEN NEGATIVE (Neg)
--- NOTE | 2025-02-18 20:07 | PROGRESS NOTE- Residence ---
Progress Note - Resident Providers to CC Resident Creating Document: DAKOTA VANESSA RES ~ Antibiotic Timeout Antibiotic Ordered?: No Subjective Patient was seen and examined at the bedside today. His headache improved. Denies any complaints of chest pain or palpitations. Objective Vital Signs Date Time Temp Pulse Resp B/P (MAP) Pulse Ox O2 Delivery O2 Flow Rate FiO2 02/18/25 19:40 75 18 95 Room Air* 0 21 02/18/25 15:00 97.4 138/78 (98) Result Diagram: 02/18/25 0602/18/25 06 General: awake, alert oriented to place, time, and person HEENT: No pallor present, no icterus, moist mucous membranes Neck: No masses and tenderness Resp: Unlabored. Bilateral basal lung crackles Heart: Regular Rate and rhythm, normal S1 and S2 without murmur, rub or gallop Abdomen: Soft and non tender no organomegaly, no guarding and rigidity, bowel sounds present Neuro: No weakness in the upper and lower limb muscles, power of the muscles 5/5 bilateral upper and lower muscles, knee reflex present bilaterally. Cranial nerves intact Extremities: 1+ pedal edema. No cyanosis or clubbing Skin: Warm and Dry. No lesions Plan Plan Patient is 54-year-old male with history of hypertension, stable angina, COPD, CHF, type 2 diabetes and ROLLY who came to the ED due to headaches and concerns of high blood pressure. Admitted for evaluation and management of hypertensive emergency and CHF exacerbation. Hypertensive emergency Initial blood pressure 203/115, along with headaches, blurry vision and chest pain Blood pressure improved to normal range. Patient received p.o. lisinopril, IV hydralazine, and p.o. clonidine in ED Head CT is unremarkable EKG was unremarkable Troponins are normal Continued home medication metoprolol 50mg, lisinopril 40mg, lasix 40mg iv BID History of stable angina Troponins normal Continued home medication aspirin Continue nitroglycerin p.r.n. chest pain Acute on chronic heart failure with preserved ejection fraction ProBNP is 271 Echocardiogram from 10/2024 showed LV is moderately dilated with moderate concentric hypertrophy. Overall systolic function appears normal. LVEF is 55%. RV appears mildly dilated with normal contractility. Thickened RV free wall. RVSP is estimated at 59 mmHG. Chest x-ray shows cardiomegaly with pulmonary congestion Started IV Lasix 40 mg b.i.d. daily Continued spironolactone COPD, not in exacerbation Obstructive sleep apnea DuoNebs q.4 PRN CPAP at night Type 2 diabetes A1c is 6.4 Hold metformin Starts Lantus 10 units, lispro 2 units, low-dose supplemental. Code Status: Full code DVT prophylaxis: Heparin Nutrition: Heart healthy diet PT: Ordered Prognosis: Guarded Dakota Vanessa M.D PGY1 Addendum will dc home on jardiance for his t2dm Date of Service: February 18, 2025 Billing Provider: TAWANNA LARA MD Common Visit Codes: [id number] INP/OBS CARE(HIGH) DAKOTA VANESSA, RES February 18, 2025 20:07 TAWANNA LARA MD February 18, 2025 20:36
[2025-02-18] MEDS: insulin glargine (Lantus) pen - multi-dose SQ SCH (22:05)
[2025-02-19 01:15] VITALS: RESP 18; O2SAT 97
[2025-02-19 02:00] VITALS: BP 130/89; PULSE 79; RESP 20; TEMP 97.6; O2SAT 98
[2025-02-19 06:00] VITALS: BP 131/62; PULSE 67; RESP 16; TEMP 97.4; O2SAT 93
[2025-02-19 07:26] LABS: BASOPHILS # (AUTO) 0.1 X10'3 (0-0.2); BASOPHILS % (AUTO) 0.8 % (0-1); EOSINOPHILS # (AUTO) 0.5 X10'3 (0-0.9); EOSINOPHILS % (AUTO) 4.9 % (0-6); HEMATOCRIT 39.6 % (42.0-52.0); LYMPHOCYTES # (AUTO) 2.6 X10'3 (1.1-4.8); LYMPHOCYTES % (AUTO) 27.2 % (21-51); MEAN CORPUSCULAR HEMOGLOBIN 31.3 PG (27.0-31.0); MEAN CORPUSCULAR HGB CONC 35.4 g/dL (33.0-36.5); MEAN CORPUSCULAR VOLUME 88.6 FL (78-98); MEAN PLATELET VOLUME 9.2 FL (7.4-10.4); MONOCYTES # (AUTO) 0.7 X10'3 (0-0.9); MONOCYTES % (AUTO) 6.8 % (2-12); NEUTROPHILS # (AUTO) 5.9 X10'3 (1.8-7.7); NEUTROPHILS % (AUTO) 60.3 % (42-75); PLATELET COUNT 227 X10'3 (140-440); RED BLOOD COUNT 4.47 X10'6 (4.70-6.10); RED CELL DISTRIBUTION WIDTH 16.2 % (11.5-14.5); WHITE BLOOD COUNT 9.7 X10'3 (4.5-11.0)
[2025-02-19 08:00] VITALS: RESP 16; O2SAT 98
[2025-02-19 08:28] LABS: ALANINE AMINOTRANSFERASE 37 U/L (12-78); ALBUMIN 3.4 G/DL (3.4-5.0); ALBUMIN/GLOBULIN RATIO 1.1 (1.1-1.5); ALKALINE PHOSPHATASE 62 IU/L (46-116); ANION GAP 9 (8-16); ASPARTATE AMINO TRANSFERASE 29 U/L (10-37); BILIRUBIN,TOTAL 1.3 MG/DL (0.1-1.0); BLOOD UREA NITROGEN 22 MG/DL (7-18); BUN/CREATININE RATIO 15.9 (10.0-20.0); CALCIUM 8.7 MG/DL (8.5-10.1); CHLORIDE 104 MMOL/L (99-107); CHOL/HDL RATIO 4.2 (0.00-4.99); CHOLESTEROL 184 MG/DL (0-200); CREATININE 1.38 MG/DL (0.60-1.10); GLUCOSE 106 MG/DL (70-104); HDL CHOLESTEROL 44 MG/DL (35-60); LDL CHOLESTEROL 112 MG/DL (50-100); MAGNESIUM 2.1 MG/DL (1.5-2.4); SODIUM 140 MMOL/L (135-145); TOTAL CARBON DIOXIDE 26.9 MMOL/L (24-32); TOTAL PROTEIN 6.6 G/DL (6.4-8.2); TRIGLYCERIDES 215 MG/DL (20-135); eCRCL 64 ML/MIN; eGFR 54 ML/MIN
[2025-02-19 08:29] LABS: POTASSIUM 3.9 MMOL/L (3.5-5.1)
[2025-02-19] MEDS ORDERED: LISI40TA13 PO (10:01)
[2025-02-19] MEDS ORDERED: EMPA10TA PO (10:01)
[2025-02-19] MEDS ORDERED: aspirin 325mg tablet, delayed-release (Ecotrin) PO ONE (10:05)
[2025-02-19 11:00] VITALS: BP 148/88; PULSE 81; RESP 16; TEMP 97.2; O2SAT 96
[2025-02-19] MEDS: ibuprofen 200mg tablet PO ONE (11:00)
--- NOTE | 2025-02-19 14:29 | DISCHARGE SUMMARY-Residence ---
Discharge Summary Providers to CC Resident Creating Document: MARA COOL, RES CC: TAWANNA LARA MD ~ Discharge Summary Assessment Patient is 54-year-old male with history of hypertension, stable angina, COPD, CHF, type 2 diabetes and ROLLY who came to the ED due to headaches and concerns of high blood pressure. Admitted for evaluation and management of hypertensive emergency and CHF exacerbation. Admission Diagnosis: Hypertensive emergency Hospital Course DATE OF ADMISSION: 02/17/25 DATE OF DISCHARGE: 02/19/2025 Discharge Diagnosis\Comment: Hypertensive emergency History of stable angina Acute on chronic heart failure with preserved ejection fraction COPD not in acute exacerbation Obstructive sees apnea Type 2 diabetes mellitus Operations\Procedures: None Consultants: None Complications: None Condition on DC: Stable New Medications: Empagliflozin (Jardiance) 10 Mg Tablet 1 TAB PO DAILY for 30 Days, #30 TAB 0 Refills Continued Medications: Aspirin (Children's Aspirin) 81 Mg Tab.chew 1 TAB PO DAILY Budesonide/Formoterol Fumarate (Symbicort 160-4.5 Mcg Inhaler) 160 Mcg-4.5 Mcg/Actuation Hfa.aer.ad 2 PUFFS PO Furosemide (Furosemide) 40 Mg Tablet 1 TAB PO BID Lisinopril* (Lisinopril*) 40 Mg Tablet 1 TAB PO DAILY for 30 Days, #30 TAB (This prescription has been renewed) Metoprolol Succinate (Metoprolol Succinate) 50 Mg Tab.sr.24h 1 TAB PO DAILY Nitroglycerin (Nitroglycerin) 0.4 Mg Tab.subl 1 TAB SL for angina Omeprazole (Prilosec) 40 Mg Capsule 1 CAP PO DAILY Spironolactone (Spironolactone) 25 Mg Tablet 1 TAB PO DAILY Tirzepatide (Zepbound) 7.5 Mg/0.5 Ml Pen.injctr 7.5 MG SQ Q7D Tirzepatide (Zepbound) 2.5 Mg/0.5 Ml Pen.injctr 2.5 MG SQ Q7D Discontinued Medications: Potassium Chloride 8 MEQ* (Slow-K 8 Meq*) 8 Meq Capsule.sa 1 CAP PO DAILY Potassium Chloride* (Potassium Chloride*) 10 Meq Capsule.sa 1 CAP PO DAILY Discharge Summary: A 54-year-old male presented to the ED with concerns of high blood pressure, increasing headache, blurry vision, headaches, left-sided chest pain nonradiating associated some nausea. After further evaluation in the ED patient had blood pressure of 203/115 which was controlled with IV hydralazine, p.o. clonidine lisinopril. After continuous monitoring of blood pressures, patient's blood pressure has been stable and therefore is being discharged home on the following medications as per below. Patient's other medical conditions managed accordingly. Patient was started on IV Lasix 40 mg b.i.d. which is his home dose for acute on chronic heart failure with preserved ejection fraction. Patient was hemodynamically stable at the time of discharge. Physical examination at the time of discharge: General: awake, alert oriented to place, time, and person HEENT: No pallor present, no icterus, moist mucous membranes Neck: No masses and tenderness Resp: Unlabored. Bilateral basal lung crackles Heart: Regular Rate and rhythm, normal S1 and S2 without murmur, rub or gallop Abdomen: Soft and non tender no organomegaly, no guarding and rigidity, bowel sounds present Neuro: No weakness in the upper and lower limb muscles, power of the muscles 5/5 bilateral upper and lower muscles, knee reflex present bilaterally. Cranial nerves intact Extremities: 1+ pedal edema. No cyanosis or clubbing Skin: Warm and Dry. No lesions Labs at discharge: WBC: 9.7, H/H: 13/13.6, platelet count: 227 Sodium: 140, potassium: 3.9, BUN: 22, creatinine: 1.38 Patient was discharged home with the following recommendations: Follow up with yr PCP within 2 weeks of dc. Repeat CBP and VMP at the time of appt with yr PCP We have started you on Jardiance 10 mg once daily for your blood sugars and held yr home metformin. Please maintain compliance. We held yr potassium replacements. Chat you BP readngs twice daily and review with yr PCP. Return to ER in view of Chestpain, SOB. *Problems/Diagnosis: (1) CHF (congestive heart failure) Status: Acute (2) Hypertensive emergency Status: Acute Total Time Spent on D/C: > 30 Minutes Date of Service: February 19, 2025 Billing Provider: TAWANNA LARA MD Common Visit Codes: 05863-LQI/OBS DISCH DAY >30min Problem Qualifiers (1) CHF (congestive heart failure): Heart failure type: unspecified Heart failure chronicity: unspecified Qualified Codes: I50.9 - Heart failure, unspecified MARA COOL, RES February 19, 2025 14:29 TAWANNA LARA MD February 19, 2025 21:30
== END 2025-02-19 12:09 | disposition home or self-care (01) | DRG 199 ==
LOC: ER 14:22 → ED HOLD 19:43 → PCU 3S 22:05
PROVIDERS: ADMIT Internal Medicine Critical Care Medicine; ATTEND Internal Medicine
DX: I16.1 Hypertensive emergency (principal); I50.33 Acute on chronic diastolic (congestive) heart failure; I11.0 Hypertensive heart disease with heart failure; E11.9 Type 2 diabetes mellitus without complications; G47.33 Obstructive sleep apnea (adult) (pediatric); J44.9 Chronic obstructive pulmonary disease, unspecified; Z79.82 Long term (current) use of aspirin; Z79.84 Long term (current) use of oral hypoglycemic drugs; Z79.899 Other long term (current) drug therapy
CPT/HCPCS: 36415; 70450; 71045; 80053; 80061; 80305; 81003; 82948; 83036; 83735; 83880; 84156; 84484; 85025; 87081; 93005; 94760; 96374; 97116; 97161; 97530; 99285; G0378; J0360; J1644; J1815; J1940

== ENCOUNTER 2025-05-28 15:26 | Emergency (ER) | payer MEDICAID ==
[~2025-05-28] VITALS: Ht 177.8 cm; Wt 163.0 kg
[~2025-05-28 15:26] MED LIST changes: -ASPI-1071 PO; +ASPI-1144 PO; +BUDE10.2 PO; +EMPA10TA PO; -FURO-149 PO; +FURO40TA4 PO; -LISI10TA27 PO; +LISI40TA20 PO; +METF-517 PO; +METO-384 PO; -METO50TA16 PO; -MINO2.5T19 PO; +NITR0.4T48 SL; -NITR0.4T51 SL; +OMEP40CA21 PO; +SPIR25TA5 PO; +TIRZ2.5P3 SQ; +TIRZ7.5P3 SQ
--- NOTE | 2025-05-28 15:42 | ELECTROCARDIOGRAPH REPORT ---
[facility] Test Date: 2025-05-28 Test Time: 15:40:54 Pat Name: ALICE DAVIDSON Department: EMERGENCY ROOM Room: Gender: M Darklight Inspector: SHEN : 1970 Requested By: EVENS RIVERA Order Number: [id number] Reading MD: Measurements Intervals [place] Rate: 93 P: 62 [place]: 151 QRS: 51 QRSD: 90 T: 62 QT: 346 QTc: 431 Interpretive Statements Sinus rhythm Probable left atrial enlargement Low voltage, precordial leads Please click the below link to view image of tracing.
[2025-05-28 15:56] LABS: MEAN PLATELET VOLUME 9.4 FL (7.4-10.4); RED CELL DISTRIBUTION WIDTH 13.6 % (11.5-14.5)
--- NOTE | 2025-05-28 16:05 | RADIOLOGY REPORT ---
DI CHEST,SINGLE VIEW, HISTORY: CP COMPARISON: DI CHEST,SINGLE VIEW on DOS: 02/17/25, DI CHEST,SINGLE VIEW on DOS: 11/22/24, DI CHEST,SINGL E VIEW on DOS: 10/21/24 DI CHEST,SINGLE VIEW on DOS: 02/17/25, DI CHEST,SINGLE VIEW on DOS: 11/22/24, DI CHEST,SINGLE VIEW on DO S: 10/21/24 TECHNICAL DATA: 1 view of the chest was obtained. FINDINGS: Lines and tubes: None Cardiomediastinal silhouette: enlarged Pulmonary vasculature: normal Lung expansion: normal Lung airspace: normal Lung interstitium: normal Pleura: normal Pneumothorax: no Bones: Unremarkable Other: no IMPRESSION: No acute intrathoracic abnormality. Cardiomegaly.
[2025-05-28 16:14] LABS: CREATININE 1.74 MG/DL (0.60-1.10); PRO BRAIN NATRIURETIC PEPTIDE < 30 PG/ML (0-125); TOTAL CARBON DIOXIDE 24.8 MMOL/L (24-32); eCRCL 51 ML/MIN; eGFR 41 ML/MIN
[2025-05-28 17:36] VITALS: RESP 16; TEMP 98.2; O2SAT 97
--- NOTE | 2025-05-28 19:57 | Physician Documentation ---
History of Present Illness ~ Chief Complaint: Chest Pain Stated Complaint: CP/BLURRY VISION Time Seen by MD: 19:44 Primary Medical Doctor: N/A HPI 54-year-old male presents to the ED with a complaint of acute onset chest pain at approximately 8:00 a.m. this morning.. He reported the pain is being" poking and burning" in nature. He says the pain was persistent in worsen severity until about 11:00 a.m. when he took a nitro which alleviated his pain. 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 He does have a long history of uncontrolled hypertension. Medication Reconciliation Allergies: Coded Allergies: No Known Allergies (Unverified , 11/22/24) Scheduled Aspirin (Children's Aspirin), 1 TAB PO DAILY, (Reported) Empagliflozin (Jardiance), 1 TAB PO DAILY Furosemide (Furosemide), 1 TAB PO BID, (Reported) Lisinopril* (Lisinopril*), 1 TAB PO DAILY Metformin HCl (Metformin HCl ER), 1 TAB PO BID, (Reported) Metoprolol Succinate (Metoprolol Succinate), 1 TAB PO DAILY, (Reported) Omeprazole (Prilosec), 1 CAP PO DAILY, (Reported) Spironolactone (Spironolactone), 1 TAB PO DAILY, (Reported) Tirzepatide (Zepbound), 7.5 MG SQ Q7D, (Reported) Tirzepatide (Zepbound), 2.5 MG SQ Q7D, (Reported) Miscellaneous Medications Budesonide/Formoterol Fumarate (Symbicort 160-4.5 Mcg Inhaler), 2 PUFFS PO, (Reported) Nitroglycerin (Nitroglycerin), 1 TAB SL, (Reported) Past Medical History Past Medical History: Congestive Heart Failure, Hypertension Past Surgical History: no surgical history Patient History: FH: coronary artery bypass surgery FH: emphysema FH: lung cancer Alcohol Use: Occasionally Drug Use: none Lives with: Alone Lives In: Home Occupation: unemployed Physical Exam Vital Signs: Temperature: 98.2, Source: Oral, Heart Rate: 74, Respiratory Rate: 16, BP: 147/78, Pulse Oximetry: 97, Weight: 163.000 Oxygen Flow Rate: 0 Progress Results/Orders Results/Orders Orders - MELQUIADES CHRISTIANSON INDUSTRIAL MANUFACTURING TECHNICIAN Po Challenge (05/28/25 20:10) Gait Test (05/28/25 20:10) * Orthostatic Vitals* Q12H (05/28/25 20:10) Page Hospitalist (05/28/25 20:27) Fill Out Med Reconciliation (05/28/25 20:27) Completed Orders - MELQUIADES CHRISTIANSON INDUSTRIAL MANUFACTURING TECHNICIAN Aspirin 325mg Tablet (Aspirin 325mg Tabl (05/28/25 20:55) Normal Saline 1000ml (0.9% Sodium Chlori (05/28/25 21:10) Medications Received in ER Medications (Trade) Dose Ordered Sig/Mindy Route PRN Reason Start Time Stop Time Status Last Admin Dose Admin (aspirin 325mg tablet) 1 tab ONCE ONCE PO 05/28/25 20:55 05/28/25 20:56 DC 05/28/25 22:01 1 TAB (0.9% sodium chloride (NS) 1000ml IV soln) 1,000 ml ONCE ONCE IVB 05/28/25 21:10 05/28/25 21:11 DC 05/28/25 22:01 1,000 ML Vital Signs 05/28/25 05/28/25 05/28/25 15:41 17:36 20:36 Temp 98.6 98.2 Pulse 92 74 76 79 83 Resp 16 16 B/P (MAP) 148/85 147/78 (101) 109/77 129/81 142/90 Pulse Ox 97 97 O2 Flow Rate 0 0 Laboratory Tests Test 05/28/25 15:39 05/28/25 17:50 White Blood Count 10.8 Red Blood Count 4.06 L Hemoglobin 13.8 L Hematocrit 37.6 L Mean Corpuscular Volume 92.6 Mean Corpuscular Hemoglobin 33.9 H Mean Corpuscular Hemoglobin Concent 36.6 H Red Cell Distribution Width 13.6 Platelet Count 258 Mean Platelet Volume 9.4 Neutrophils (%) (Auto) 65.3 Lymphocytes (%) (Auto) 23.5 Monocytes (%) (Auto) 7.1 Eosinophils (%) (Auto) 3.6 Basophils (%) (Auto) 0.5 Neutrophils # (Auto) 7.1 Lymphocytes # (Auto) 2.5 Monocytes # (Auto) 0.8 Eosinophils # (Auto) 0.4 Basophils # (Auto) 0.0 CBC Comment Sodium Level 137 Potassium Level 4.5 Chloride Level 104 Carbon Dioxide Level 24.8 Anion Gap 8 Blood Urea Nitrogen 34 H Creatinine 1.74 H Estimated GFR/1.73 m2 41 BUN/Creatinine Ratio 19.5 Glucose Level 241 H Calcium Level 8.7 Troponin I High Sensitivity 14 15 Pro-B-Type Natriuretic Peptide < 30 Albumin 3.9 Chemistry Comments Troponin I High Sens Percent Delta 7 Troponin I Hi Sens Absolute Change 1 Medical Decision Making Findings For this patient with a multitude of comorbidities I requested evaluation by hospitalist for admission. Patient did have a relatively high heart score.. Evaluated him for dehydration. After hospitalist evaluation, it was decided that he is safe for discharge Heart Score: 4 Differential Dx:Considerations: Include: angina, aortic dissection, chest wall pain, cholelithiasis, CHF, costochondritis, esophageal reflux/spasm, gastritis, herpes zoster, myocardial infarction, pericarditis, pleuritis, pancreatitis, pneumonia, pneumothorax, pulmonary embolus, other Departure Disposition: 01 HOME / SELF CARE / HOMELESS Impression: Primary Impression: CHF (congestive heart failure) Additional Impression: Dizziness Condition: Stable Discharge Instructions: Nonspecific Chest Pain, Adult Referrals: NO PRIMARY CARE PROVIDER (PCP) Signature Scribe Signature: f Attestation: Scribed for Melquiades Christianson Form Worker by Melquiades Lester NP . 05/28/25 23:20 MELQUIADES CHRISTIANSON NP May 28, 2025 19:57
[2025-05-28 20:36] VITALS: BP 142/90; PULSE 83
[2025-05-28] MEDS: normal saline 1000ML IV soln IVB ONE (22:01)
== END 2025-05-28 23:47 | disposition home or self-care (01) ==
LOC: ER 15:28
DX: I11.0 Hypertensive heart disease with heart failure (principal); I50.9 Heart failure, unspecified; R42 Dizziness and giddiness; Z79.899 Other long term (current) drug therapy; Z79.82 Long term (current) use of aspirin; Z56.0 Unemployment, unspecified; Z72.89 Other problems related to lifestyle
CPT/HCPCS: 36415; 71045; 80048; 83880; 84484; 85025; 93005; 96360; 99285; J7030